=== PATIENT | female | born 1990 | race Caucasian/White ===

== ENCOUNTER 2021-02-21 18:22 | Inpatient (IN) | payer BC ==
[2021-02-21] VITALS (12 sets, daily range): BP systolic 103–152; BP diastolic 61–99; PULSE 66–73; TEMP 97.9–98.7
[~2021-02-21] VITALS: Ht 167.6 cm; Wt 123.6 kg
--- NOTE | 2021-02-21 18:30 | NUR ---
Ambulatory to unit for assessment, accompanied by spouse, for assessment. Oriented to room, monitor, plan of care. Pt reports "my water broke @ 1630, it was alot and clear" SVE with + amnitotrace.
[2021-02-21 20:36] LABS: BASO % 0.4 % (0.0-2.0); EOS # 0.1 K/mm3 (0.0-0.7); EOS % 0.9 % (0-4.0); GRAN # 7.8 K/mm3 (1.4-6.5); GRAN % 71.3 % (42.2-75.2); HEMATOCRIT 43.7 % (37.0-47.0); HEMOGLOBIN 14.9 g/dl (12.5-16.0); LYMPH # 2.4 K/mm3 (1.2-3.4); LYMPH % 21.8 % (20.0-51.0); MEAN CELL VOLUME 92 fl (80.0-100.0); MEAN CORPUSCULAR HEMOGLOBIN 31 pg (27.0-31.0); MEAN CORPUSCULAR HGB CONC 34 g/dl (33.0-37.0); MEAN PLATELET VOLUME 10.7 fl (7.4-10.4); MONO # 0.5 K/mm3 (0.1-0.6); MONO % 4.7 % (1.7-9.3); PLATELET COUNT 235 K/mm3 (130-400); RED BLOOD COUNT 4.75 M/mm3 (4.10-5.30)
[2021-02-21] MEDS ORDERED: LEXAPRO20 MG (23:22)
[2021-02-21] MEDS ORDERED: OMEGA-31 SGL PO (23:23)
[2021-02-21] MEDS ORDERED: PRENATAL FORMU1 EAC3 PO (23:24)
[2021-02-21] MEDS ORDERED: SINGULAIR 110 MG/TAB PO (23:26)
[2021-02-22] VITALS (9 sets, daily range): BP systolic 108–135; BP diastolic 61–80; PULSE 58–84; TEMP 97.8–98.8
--- NOTE | 2021-02-22 05:30 | NUR ---
Pt able to bend knees and lift hips off bed. Moves to stand @ bedside without difficulty, wobbly. Unable to take step. Back onto bed. Clean gown and peripad on.
[2021-02-22 07:33] LABS: HEMATOCRIT 37.3 % (37.0-47.0)
[2021-02-22 07:34] LABS: HEMOGLOBIN 12.7 g/dl (12.5-16.0)
[2021-02-23 08:30] VITALS: BP 128/74; PULSE 62; TEMP 97.3
[2021-02-23] MEDS ORDERED: IBU600 MG PO (10:45)
[2021-02-23] MEDS ORDERED: PERCOCET 325 MG1 TA2 PO (10:46)
[2021-02-23 19:30] VITALS: BP 113/68; PULSE 81; TEMP 98.4
[2021-02-24 08:00] VITALS: BP 113/75; PULSE 71; TEMP 97.3
--- NOTE | 2021-02-24 12:26 | NUR ---
Initial visit; Parents thanked Commercial Sales [employer]ant for offering congratulations and God's blessings for the of their son. [employer] Sales [employer]ant thanked family for choosing [facility].
[2021-02-24 17:00] VITALS: BP 131/71; PULSE 78; TEMP 98.7
[2021-02-24 20:45] VITALS: BP 120/69; PULSE 81; TEMP 98
[2021-02-25 09:15] VITALS: BP 114/62; BP 140/80; PULSE 72; PULSE 87; TEMP 97.7; TEMP 97.8
== END 2021-02-25 15:30 | disposition home or self-care (01) | DRG 788 ==
LOC: LDRO 18:22 → EDBD 18:22 → LDR 18:22 → LDRO 19:00 → OB 19:11 → LDR 19:11 → OB 22:45
PROVIDERS: Obstetrics & Gynecology; ADMIT Student in an Organized Health Care Education/Training Program
PROC: 10D00Z1 Extraction of Products of Conception, Low, Open Approach (ICD-10-PCS; principal; 2021-02-21)
DX: O42.913 Preterm premature rupture of membranes, unspecified as to length of time between rupture and onset of labor, third trimester (principal); O32.1XX0 Maternal care for breech presentation, not applicable or unspecified; O99.344 Other mental disorders complicating childbirth; F32.9 Major depressive disorder, single episode, unspecified; F41.9 Anxiety disorder, unspecified; O99.214 Obesity complicating childbirth; O99.62 Diseases of the digestive system complicating childbirth; K21.9 Gastro-esophageal reflux disease without esophagitis; Z3A.35 35 weeks gestation of pregnancy; Z37.0 Single live birth; Z86.16 Personal history of COVID-19
CPT/HCPCS: J0171; J0290; J0690; J1100; J1885; J2370; J2405; J7120